=== PATIENT | female | born 1995 | race African-American/Black ===

== ENCOUNTER 2016-08-27 10:31 | Emergency (ER) | payer SELFPAY ==
[~2016-08-27] VITALS: Ht 165.1 cm; Wt 65.0 kg
[2016-08-27] MEDS ORDERED: HYDROCODONE/ACETAMINOPHEN 5-325 MG TABLET PO ONE (13:30)
[2016-08-27] MEDS ORDERED: CEPHALEXIN MONOHYDRATE 500 MG CAPSULE PO ONE (13:30)
[2016-08-27 13:43] VITALS: BP 120/71
== END 2016-08-27 13:54 | disposition home or self-care (01) ==
LOC: EMS 10:33
DX: L05.01 Pilonidal cyst with abscess (principal); F12.90 Cannabis use, unspecified, uncomplicated
CPT/HCPCS: 99283

== ENCOUNTER 2016-09-03 23:47 | Emergency (ER) | payer SELFPAY ==
[~2016-09-03] VITALS: Ht 165.1 cm; Wt 65.9 kg
[2016-09-03] MEDS ORDERED: HYDR-309 PO (23:55)
[2016-09-03] MEDS ORDERED: CEPH500 PO (23:55)
[2016-09-04] MEDS ORDERED: LIDOCAINE HCL BUFFERED 1% W/EPI 1:100,000 20 ML VIAL INJ ONE (01:00)
[2016-09-04 01:37] VITALS: BP 121/77
[2016-09-04] MEDS ORDERED: ONDANSETRON HCL 4 MG TABLET PO ONE (01:45)
[2016-09-04] MEDS ORDERED: HYDROCODONE/ACETAMINOPHEN 5-325 MG TABLET PO ONE (01:45)
== END 2016-09-04 02:05 | disposition home or self-care (01) ==
LOC: EMS 23:49
DX: L05.01 Pilonidal cyst with abscess (principal); F12.90 Cannabis use, unspecified, uncomplicated
CPT/HCPCS: 10080; 99283; J3490; Q0162

== ENCOUNTER 2018-06-30 17:06 | Emergency (ER) | payer SELFPAY ==
[~2018-06-30 17:06] MED LIST: CEPH500 PO; HYDR-309 PO
== END 2018-06-30 18:07 | disposition left against medical advice (07) ==
LOC: EMS 17:07
DX: L72.9 Follicular cyst of the skin and subcutaneous tissue, unspecified (principal); Z53.21 Procedure and treatment not carried out due to patient leaving prior to being seen by health care provider